=== PATIENT | female | born 1950 | race African-American/Black ===

== ENCOUNTER 2017-07-26 11:56 | Emergency (ER) | payer MEDICARE, OTHER ==
[~2017-07-26] VITALS: Ht 152.4 cm; Wt 102.0 kg
[~2017-07-26 11:56] MED LIST: ASPI81TA11 PO; DILT360C12 PO; HYDR12.56 PO; METF500 PO; METH500T3 PO; MULT-65 PO; PRAV40TA2 PO
[2017-07-26 12:05] VITALS: BP 145/79; PULSE 80; RESP 16; TEMP 98.1; O2SAT 97
[2017-07-26] MEDS ORDERED: METF500T PO (13:10)
[2017-07-26] MEDS ORDERED: HYDR12.56 PO (13:10)
[2017-07-26] MEDS ORDERED: METF1000 PO (13:10)
[2017-07-26] MEDS ORDERED: PRAV40TA2 PO (13:10)
[2017-07-26] MEDS ORDERED: DILT240C44 PO (13:10)
[2017-07-26] MEDS ORDERED: ASPI-516 CHEW (13:10)
[2017-07-26] MEDS ORDERED: MULTTAB67 PO (13:10)
[2017-07-26] MEDS ORDERED: PROPARACAINE HCL 0.5% OPHT SOLN 15 ML BTL EACH EYE ONE (13:30)
--- NOTE | 2017-07-26 13:58 | PD ---
HPI Chief Complaint: Eye Problems/Injury Time Seen by Provider: 13:21 Travel History International Travel<30 days: No Contact w/Intl Traveler<30days: No Traveled to known affect area: No History of Present Illness HPI 67-year-old female complains of redness and pain and photophobia to the left eye. Patient states the symptoms started week ago and has been persistent since then. Patient denies any headache. Patient states that she has some mild blurring of the left visual field. Patient states that she started having tearing the left eye this morning. Patient denies any eye injury. Patient states that she was seen by regional climate change analyst last year and the eye exam was normal. Patient denies any history of glaucoma. PFSH Past Medical History Cardiac Catheterization: Yes (X2) Cardiovascular Problems: Yes (HYPERTENSION) High Cholesterol: Yes Chest Pain: Yes Diabetes: Yes (METFORMIN) Patient Takes Glucophage: Yes Diminished Hearing: No Social History Alcohol Use: No Tobacco Use: No Substance Use: No Allergies-Medications (Allergen,Severity, Reaction): Coded Allergies: No Known Allergies (Verified Adverse Reaction, Unknown, 07/26/17) Reported Meds & Prescriptions Reported Meds & Active Scripts Active Reported Aspirin 81 Mg Chew 81 Mg CHEW DAILY Multiple Vitamin 1 Tab 1 Tab PO DAILY Pravastatin 40 Mg Tab 40 Mg PO DAILY Hydrochlorothiazide 12.5 Mg Tab 12.5 Mg PO DAILY Metformin (Metformin HCl) 500 Mg Tab 500 Mg PO HS Metformin (Metformin HCl) 1,000 Mg Tab 1,000 Mg PO DAILY With a meal Diltiazem CD 24 HR 240 Mg Caper 240 Mg PO DAILY Review of Systems General / Constitutional: No: Fever Eyes: Positive: Blurred Vision, Photophobia, Redness, Tearing, No: Visual changes HENT: No: Headaches Cardiovascular: No: Chest Pain or Discomfort Respiratory: No: Shortness of Breath Gastrointestinal: No: Abdominal Pain Genitourinary: No: Dysuria Musculoskeletal: No: Pain Skin: No Rash Neurologic: No: Weakness Psychiatric: No: Depression Endocrine: No: Polydipsia Hematologic/Lymphatic: No: Easy Bruising Physical Exam Narrative GENERAL: Well-nourished, well-developed patient. SKIN: Focused skin assessment warm/dry. HEAD: Normocephalic. EYES: Left conjunctival mild erythematous. Clear discharge noted. Pupils constricted. Patient has photophobia on the left eye. Chilo-Pen pressure the left eye 18-19. NECK: Supple, trachea midline. No JVD or lymphadenopathy. CARDIOVASCULAR: Regular rate and rhythm without murmurs, gallops, or rubs. RESPIRATORY: Breath sounds equal bilaterally. No accessory muscle use. GASTROINTESTINAL: Abdomen soft, non-tender, nondistended. MUSCULOSKELETAL: No cyanosis, or edema. BACK: Nontender without obvious deformity. No CVA tenderness. Neurologic exam normal. Data Data Last Documented VS Vital Signs Date Time Temp Pulse Resp B/P (MAP) Pulse Ox O2 Delivery O2 Flow Rate FiO2 07/26/17 12:05 98.1 80 16 145/79 (101) 97 Orders Orders Proparacaine 0.5% Opth Soln (Alcaine 0.5 (07/26/17 13:30) MDM Medical Decision Making Medical Screen Exam Complete: Yes Emergency Medical Condition: Yes Differential Diagnosis Differential diagnosis including uveitis, iritis, corneal abrasion, corneal ulcer, foreign body, glaucoma. Narrative Course 67-year-old female with left eye redness, photophobia and pain. I spoke with Dr. Berger. Patient will follow up with her in the office in 2 days. Diagnosis Primary Impression: Uveitis Additional Instructions: Follow-up with regional climate change analyst in 2 days. Patient will be follow-up with Dr. Berger, regional climate change analyst. Med/Other Pt SpecificInfo: No Change to Meds Disposition: 01 DISCHARGE HOME Condition: Stable Jonas Gordon MD Jul 26, 2017 13:58
== END 2017-07-26 14:34 | disposition home or self-care (01) ==
LOC: PHED 11:56 → PHEFT 14:34
DX: H20.9 Unspecified iridocyclitis (principal); I10 Essential (primary) hypertension; E78.00 Pure hypercholesterolemia, unspecified; E11.9 Type 2 diabetes mellitus without complications; Z79.82 Long term (current) use of aspirin
CPT/HCPCS: 99281

== ENCOUNTER → 2017-08-27 | Outpatient (CLI) | payer MEDICARE, OTHER ==
[~2017-08-27] MED LIST changes: +ASPI-516 CHEW; -ASPI81TA11 PO; +DILT240C44 PO; -DILT360C12 PO; +METF1000 PO; -METF500 PO; +METF500T PO; -METH500T3 PO; -MULT-65 PO; +MULTTAB67 PO
[2017-08-27 12:01] LABS: AUTOMATED NEUTROPHIL # 5.3 TH/MM3 (1.8-7.7); BASOPHIL % 0.4 % (0.0-2.0); EOSINOPHIL # 0.2 TH/MM3 (0-0.4); EOSINOPHIL % 2.2 % (0.0-4.0); HEMATOCRIT 40.8 % (35.0-46.0); HEMOGLOBIN 13.4 GM/DL (11.6-15.3); LYMPHOCYTE # 1.5 TH/MM3 (1.0-4.8); MEAN CELL VOLUME 83.3 FL (80.0-100.0); MEAN CORPUSCULAR HEMOGLOBIN 27.4 PG (27.0-34.0); MEAN CORPUSCULAR HGB CONC 32.8 % (32.0-36.0); MEAN PLATELET VOLUME 6.6 FL (7.0-11.0); MONO % 6.6 % (0.0-8.0); MONOCYTE # 0.5 TH/MM3 (0-0.9); NEUT % 70.8 % (16.0-70.0); PLATELET COUNT 299 TH/MM3 (150-450); RED CELL DISTRIBUTION WIDTH 12.5 % (11.6-17.2); WHITE BLOOD COUNT 7.5 TH/MM3 (4.0-11.0)
--- NOTE | 2017-08-27 22:54 | EKG ---
Date Performed: 08/27/2017 Time Performed: 11:52:41 PTAGE: 67 years EKG: Sinus rhythm NONSPECIFIC T-WAVE ABNORMALITY BORDERLINE ECG PREVIOUS TRACING : 10/08/2006 11.07 Since the previous tracing, no significant change noted DOCTOR: Jabari Whalen Interpretating Date/Time 08/27/2017 22:51:26
== END ==
LOC: PHPRE 10:54
PROVIDERS: ATTEND Ophthalmology
DX: Z01.812 Encounter for preprocedural laboratory examination (principal); Z01.810 Encounter for preprocedural cardiovascular examination; H25.013 Cortical age-related cataract, bilateral
CPT/HCPCS: 36415; 85025; 93005

== ENCOUNTER → 2017-10-08 | Outpatient (CLI) | payer MEDICARE, OTHER ==
[~2017-10-08] VITALS: Ht 157.5 cm; Wt 104.5 kg
[~2017-10-08] MED LIST changes: +CHLORHEXIDINE GLUCONATE 2 % 1 PACK (2 CLOTHS) TOPICAL PRN; +EPINEPHrine-Lidocaine/BSS (PF/SF) 4-120 mg/16 mL OPTH SYR ONE; +EPINEPHrine-Lidocaine/BSS (PF/SF) 4-120 mg/16 mL OPTH SYR RIGHT EYE ONE; +HYALURONIDASE/LIDOCAINE/BUPIVACAINE 5 ML SYR ONE; +HYALURONIDASE/LIDOCAINE/BUPIVACAINE 5 ML SYR RIGHT EYE ONE; +LACTATED RINGER'S 1000 ML IV PRN; +METOPROLOL TARTRATE 25 MG TAB PO PRN; +POVIDONE IODINE 5% (ANTISEPSIS KIT) 4 APPLICATIONS EACH NARE PRN; +PROPOFOL 200 MG/20 ML AMP ONE; +SODIUM CHLORID 0.9% 500 ML IV PRN; +TOBRAMYCIN/DEXAMETHASONE OPTH OINT 3.5 GM TUBE ONE; +VISCOAT OPHT IRRIG SOLN 0.75 ML SYRINGE ONE
[2017-10-08 08:50] VITALS: PULSE 71
[2017-10-08] MEDS: CYCLOPENTOLATE HCL 1% OPHT SOLN 2 ML BTL RIGHT EYE SCH ×3 (08:50→09:00)
[2017-10-08] MEDS: TROPICAMIDE 1% OPHT SOLN 15 ML BTL RIGHT EYE SCH ×3 (08:50→09:00)
[2017-10-08] MEDS: TETRACAINE 0.5% OPTH SOLN 4 ML BTL RIGHT EYE SCH ×3 (08:50→09:00)
[2017-10-08] MEDS: PHENYLEPHRINE HCL 10% OPTH SOLN 5 ML BTL RIGHT EYE SCH ×3 (08:55→09:05)
[2017-10-08 09:35] VITALS: PULSE 70
[2017-10-08 10:50] VITALS: TEMP 97.7
--- NOTE | 2017-10-08 10:58 | PD.OP ---
Operative Report Date of Surgery: Oct 08, 2017 Preoperative Diagnosis: (1) Nuclear sclerotic cataract of right eye Postoperative Diagnosis: (1) Pseudophakia of right eye Procedure: phacoemulsification and intraocular lens implant right eye Surgeon: Marnie Berger Ekg Tech(s): none Operation and Findings: Patient was consented for surgery, given a retrobulbar block by anesthesia, and taken back to the operating room. She was prepped and draped in the usual sterile fashion for ophthalmic surgery. A wire lid speculum was placed in the right eye. A paracentesis incision was created at the 11 o'clock position on the limbus. Vision blue dye and viscoelastic was injected into the anterior chamber. The main incision was created at the 8 o'clock position on the limbus with a 2.4 mm keratome. A continuous curvilinear capsulorrhexis was made on the anterior lens capsule. Hydrodissection was used to separate the lens from the capsule. Phacoemulsification was used to remove the lens nucleus material. Irrigation and aspiration was used to remove the remaining cortical material. The lens implant ([id number]) was placed in the capsular bag. Viscoelastic was removed with irrigation and aspiration. The incisions were irrigated and found to be watertight. Tobradex ointment, a patch, and shield were placed on the right eye. The patient was sent to PACU in stable condition. Marnie Berger MD Oct 08, 2017 10:58
[2017-10-08 11:08] VITALS: BP 154/96; PULSE 70; RESP 16; O2SAT 100
== END ==
LOC: PHSDC 08:21
PROVIDERS: ATTEND Ophthalmology
DX: H25.11 Age-related nuclear cataract, right eye (principal)
CPT/HCPCS: 00142; 66984; J7040; V2632